=== PATIENT | female | born 1935 | race Caucasian/White ===

== ENCOUNTER → 2018-01-16 | Outpatient (CLI) | payer MEDICARE, OTHER ==
[~2018-01-16] MED LIST: ALBU2.5V2 IH; ALBU8.5H8 IH; ALPR0.5T8 PO; AMLO10TA6 PO; CLOP75TA32 PO; ERGO500014 PO; FLUO-126 PO; FURO20TA4 PO; GABA-529 PO; HYDR12.530 PO; ISOS60TA4 PO; LORA10TA7 PO; METO-408 PO; NAPR250T4 PO; PANT40TA25 PO; SIMV20TA6 PO
== END | disposition home or self-care (01) ==
LOC: SHCH 14:43
PROVIDERS: ATTEND Internal Medicine Cardiovascular Disease
DX: R01.1 Cardiac murmur, unspecified (principal); I51.7 Cardiomegaly
CPT/HCPCS: 93306

== ENCOUNTER 2019-07-28 13:26 | Inpatient (IN) | payer MEDICARE, OTHER ==
[~2019-07-28] VITALS: Ht 162.6 cm; Wt 71.0 kg
[~2019-07-28 13:26] MED LIST changes: -ALBU2.5V2 IH; +AMLO-258 PO; -AMLO10TA6 PO; -FLUO-126 PO; +FLUO20CA35 PO; -FURO20TA4 PO; +LEVO500T2 PO; -NAPR250T4 PO; -PANT40TA25 PO; +PANT40TA54 PO; +SIMV-43 PO; -SIMV20TA6 PO; +VIT1CAPS47 PO
[2019-07-28] MEDS ORDERED: APIXABAN 2.5 MG TABLET PO ONE (13:52)
[2019-07-28 13:53] LABS: BASOPHILS % (AUTO) 0.8 % (0.0-5.0); EOSINOPHILS % (AUTO) 2.9 % (0.0-8.0); HEMATOCRIT 40.3 % (36-48); LYMPHOCYTES % (AUTO) 26.8 % (21.0-51.0); MEAN CORPUSCULAR HEMOGLOBIN 28.2 pg (27.0-33.0); MONOCYTES % (AUTO) 7.6 % (3.0-13.0); NEUTROPHILS % (AUTO) 61.6 % (40.0-77.0); PLATELET COUNT (AUTO) 227 K/uL (130-400); RED BLOOD CELL COUNT(AUTO) 4.58 MIL/uL (4.00-5.50); RED CELL DISTRIBUTION WIDTH 13.8 % (11.0-15.5); WHITE BLOOD COUNT (AUTO) 6.6 K/uL (4.8-10.8)
[2019-07-28] MEDS ORDERED: METOPROLOL TARTRATE 1 MG/ML 5ML VIAL IV ONE ×3 (13:53→15:01)
[2019-07-28 14:07] LABS: CREATININE 0.9 mg/dL (0.5-1.5); POTASSIUM 4.1 mmol/L (3.5-5.1)
[2019-07-28] MEDS ORDERED: METOPROLOL TARTRATE 50 MG TAB ONE (15:01)
[2019-07-28] MEDS ORDERED: METOPROLOL TARTRATE 1 MG/ML 5ML VIAL IV PRN (15:15)
[2019-07-28] MEDS ORDERED: POTASSIUM CHLORIDE 10% ELIXIR 20 MEQ/15 ML UDCUP PO PRN (15:15)
[2019-07-28] MEDS ORDERED: LIDOCAINE HCL-MPF 1% 2ML VIAL IJ PRN (15:15)
[2019-07-28] MEDS ORDERED: LACTULOSE 20 GM/30 ML UDCUP PO PRN ×2 (15:15→15:30)
[2019-07-28] MEDS ORDERED: ACETAMINOPHEN 325 MG TAB PO PRN ×4 (15:15→15:30)
[2019-07-28] MEDS ORDERED: POTASSIUM CHLORIDE 20MEQ/100ML 100 ML IV PRN (15:15)
[2019-07-28 15:17] LABS: APPEARANCE,URINE Clear (CLEAR); BILIRUBIN,URINE Negative (NEGATIVE); COLOR,URINE Yellow (YELLOW); GLUCOSE, URINE (UA) Negative (NEGATIVE); KETONES,URINE Negative (NEGATIVE); LEUKOCYTE ESTERASE ,URINE Negative (NEGATIVE); NITRATE,URINE Negative (NEGATIVE); OCCULT BLOOD,URINE Negative (NEGATIVE); PROTEIN,URINE Negative (NEGATIVE); UROBILINOGEN,URINE 0.2 mg/dL (0.2-1.0)
[2019-07-28] MEDS: SODIUM CHLORIDE 0.9% 1000ML 1,000 ML IV SCH (15:18)
[2019-07-28] MEDS ORDERED: SODIUM CHLORIDE 0.9% 1000ML 1,000 ML IV ONE (15:28)
[2019-07-28] MEDS ORDERED: NITROGLYCERIN 0.4 MG SL TAB SL PRN (15:30)
[2019-07-28] MEDS ORDERED: ONDANSETRON HCL 4 MG/2 ML VIAL IV PRN (15:30)
[2019-07-28] MEDS ORDERED: GUAIFENESIN-DM 200/20 MG 10 ML PO PRN (15:30)
[2019-07-28] MEDS ORDERED: MAG HYDROX/AL HYDROX/SIMETH ES 30 ML SUSP UDCUP PO PRN (15:30)
[2019-07-28] MEDS ORDERED: DIPHENHYDRAMINE HCL 25 MG CAPSULE PO PRN (15:30)
[2019-07-28] MEDS ORDERED: DiphenhydrAMINE HCL 50 MG/ML VIAL IV PRN (15:30)
[2019-07-28] MEDS ORDERED: ESMOLOL HCL 2,500 MG in SODIUM CHLORIDE 0.9% 250 ML IV SCH (15:45)
[2019-07-28] MEDS ORDERED: HYDROXYZINE HCL 25 MG TABLET PO PRN (16:00)
[2019-07-28] MEDS ORDERED: DILTIAZEM HCL 125 MG/25 ML 125 MG in SODIUM CHLORIDE 0.9% 100 ML IV SCH (17:45)
[2019-07-28] MEDS ORDERED: DILTIAZEM HCL 125 MG/25 ML VIAL IV ONE (17:52)
[2019-07-28] MEDS ORDERED: SODIUM CHLORIDE 0.9% 100 ML IV ONE (17:52)
[2019-07-28] MEDS ORDERED: MIDAZOLAM HCL 1 MG/ML 2ML VIAL ONE (18:16)
[2019-07-28] MEDS: FAMOTIDINE 20MG TAB 20 MG TAB PO SCH (21:00)
[2019-07-28] MEDS: APIXABAN 2.5 MG TABLET PO SCH (21:00)
[2019-07-28 22:15] VITALS: BP 147/61
[2019-07-28] MEDS ORDERED: APIX2.5T PO (23:39)
[2019-07-29] MEDS: SODIUM CHLORIDE 0.9% 1000ML 1,000 ML IV SCH ×3 (00:21→21:18)
[2019-07-29 04:16] VITALS: BP 147/78
[2019-07-29 06:00] LABS: BASOPHILS % (AUTO) 0.9 % (0.0-5.0); EOSINOPHILS % (AUTO) 2.2 % (0.0-8.0); HEMATOCRIT 38.3 % (36-48); LYMPHOCYTES % (AUTO) 32.8 % (21.0-51.0); MEAN CORPUSCULAR HEMOGLOBIN 27.5 pg (27.0-33.0); MEAN CORPUSCULAR HGB CONC 31.3 g/dL (32.0-36.0); MEAN CORPUSCULAR VOLUME 87.6 fL (79-99); MONOCYTES % (AUTO) 10.5 % (3.0-13.0); NEUTROPHILS % (AUTO) 53.3 % (40.0-77.0); PLATELET COUNT (AUTO) 230 K/uL (130-400); RED BLOOD CELL COUNT(AUTO) 4.37 MIL/uL (4.00-5.50); WHITE BLOOD COUNT (AUTO) 5.8 K/uL (4.8-10.8)
[2019-07-29 06:08] LABS: ALBUMIN 3.2 g/dL (3.5-5.0); BILIRUBIN,TOTAL 0.3 mg/dL (0.2-1.0); CREATININE 0.8 mg/dL (0.5-1.5); POTASSIUM 3.6 mmol/L (3.5-5.1); TOTAL PROTEIN, SERUM 6.3 g/dL (6.0-8.3)
[2019-07-29 08:00] VITALS: BP 152/73
[2019-07-29] MEDS ORDERED: METOPROLOL SUCCINATE 50 MG TAB.SR.24H PO SCH (09:00)
[2019-07-29] MEDS ORDERED: NON-FORMULARY MEDICATION 1 EACH (Amlodipine Besylate 1 TAB) PO SCH (09:00)
[2019-07-29] MEDS ORDERED: NON-FORMULARY MEDICATION 1 EACH (Metoprolol Succinate 25 MG) PO SCH (09:00)
[2019-07-29] MEDS: ISOSORBIDE MONO 60 MG TAB.SR PO SCH (09:01)
[2019-07-29] MEDS: FAMOTIDINE 20MG TAB 20 MG TAB PO SCH ×2 (09:01→21:42)
[2019-07-29] MEDS: APIXABAN 2.5 MG TABLET PO SCH ×2 (09:02→21:42)
[2019-07-29] MEDS: AMLODIPINE BESYLATE 5 MG TAB PO SCH (09:02)
[2019-07-29] MEDS: ALPRAZOLAM 0.5 MG TABLET PO SCH ×2 (09:02→21:42)
[2019-07-29] MEDS: METOPROLOL SUCCINATE 50 MG TAB.SR.24H PO SCH (09:44)
[2019-07-29 12:06] VITALS: BP 98/55
[2019-07-29] MEDS ORDERED: FUROSEMIDE 10 MG/ML 2ML VIAL IV SCH (14:15)
[2019-07-29 16:00] VITALS: BP 105/64
--- NOTE | 2019-07-29 16:50 | NUR ---
DCP CM met with pt discussed dc plans. Pt is semi-independent prior to admission, lives at home with daughter. Pt has a walker, wheelchair. Denies any other equipment/services. Feels safe to go back home, daughter able to assist with transportation and needs as necessary. DC plan to home once stable. CM to cont to follow up. Addendum: 07/29/19 at 1656 by DIONISIO THOMPSON LVN CM Amended: Links added.
--- NOTE | 2019-07-29 19:00 | NUR ---
Received report patient off Cardize and IVF.No official order.
[2019-07-29 19:40] VITALS: BP 113/56
[2019-07-29] MEDS: SIMVASTATIN 20 MG TABLET PO SCH (21:42)
[2019-07-29] MEDS: FLUOXETINE HCL 20 MG CAPSULE PO SCH (21:42)
--- NOTE | 2019-07-29 22:52 | NUR ---
Pt placed back on cardizem drip and NS back due to HR went up to Afu=ib RVR 130's.Patient denies,shortness of breath,palpitation and chest pain,daughter to bedside.
[2019-07-29 23:27] VITALS: BP 132/74
[2019-07-30] MEDS ORDERED: DILTIAZEM HCL 125 MG/25 ML VIAL IV ONE (03:00)
[2019-07-30] MEDS ORDERED: SODIUM CHLORIDE 0.9% 100 ML IV ONE ×2 (03:02→03:26)
[2019-07-30] MEDS ORDERED: SODIUM CHLORIDE 0.9% 1000ML 0 ML IV ONE (03:21)
[2019-07-30] MEDS: SODIUM CHLORIDE 0.9% 1000ML 1,000 ML IV SCH (03:35)
[2019-07-30 03:49] VITALS: BP 149/95
[2019-07-30 05:32] LABS: EOSINOPHILS % (AUTO) 1.7 % (0.0-8.0); HEMATOCRIT 37.3 % (36-48); LYMPHOCYTES % (AUTO) 25.5 % (21.0-51.0); MEAN CORPUSCULAR HEMOGLOBIN 28.2 pg (27.0-33.0); MEAN CORPUSCULAR HGB CONC 32.2 g/dL (32.0-36.0); MEAN CORPUSCULAR VOLUME 87.6 fL (79-99); MONOCYTES % (AUTO) 11.1 % (3.0-13.0); NEUTROPHILS % (AUTO) 60.1 % (40.0-77.0); PLATELET COUNT (AUTO) 236 K/uL (130-400); RED BLOOD CELL COUNT(AUTO) 4.26 MIL/uL (4.00-5.50); RED CELL DISTRIBUTION WIDTH 13.7 % (11.0-15.5); WHITE BLOOD COUNT (AUTO) 7.2 K/uL (4.8-10.8)
[2019-07-30 06:04] LABS: B-TYPE NATRIURETIC PEPTIDE 167 pg/mL (0-100)
[2019-07-30 06:21] LABS: BILIRUBIN,TOTAL 0.3 mg/dL (0.2-1.0); MAGNESIUM 2.3 mg/dL (1.80-2.40); PHOSPHORUS 3.5 mg/dL (2.5-4.9); POTASSIUM 3.6 mmol/L (3.5-5.1); THYROID STIMULATING HORMONE 1.9 uIU/mL (0.36-3.74); TOTAL PROTEIN, SERUM 6.1 g/dL (6.0-8.3)
[2019-07-30] MEDS: POTASSIUM CHLORIDE 20 MEQ ERTAB PO PRN ×2 (06:35→20:39)
[2019-07-30 08:00] VITALS: BP 132/75
[2019-07-30] MEDS: ALPRAZOLAM 0.5 MG TABLET PO SCH ×2 (09:18→20:39)
[2019-07-30] MEDS: METOPROLOL SUCCINATE 50 MG TAB.SR.24H PO SCH ×6 (09:18→20:40)
[2019-07-30] MEDS: APIXABAN 2.5 MG TABLET PO SCH ×2 (09:18→20:39)
[2019-07-30] MEDS: FAMOTIDINE 20MG TAB 20 MG TAB PO SCH ×2 (09:18→20:40)
[2019-07-30] MEDS: AMLODIPINE BESYLATE 5 MG TAB PO SCH (09:19)
[2019-07-30] MEDS: ISOSORBIDE MONO 60 MG TAB.SR PO SCH (09:19)
[2019-07-30 11:53] VITALS: BP 86/60
--- NOTE | 2019-07-30 12:00 | NUR ---
CARDIZEM DRIP TO BE WEANED OFF. AT 5 MG /HR .DOWN TO 2.5 MG /HR HR PER TELE MONITORING. A- FIB AT 112- 130'S . WILL BE MONITORING WEANING DOWN DRIP . EDUCATIONS DONE. AND CALL LIGHT IN REACH
--- NOTE | 2019-07-30 14:00 | NUR ---
CARDIZEM DRIP OFF , . WILL BE MONITORING . HEART RATE A- FIB AT Rate of 90
[2019-07-30 16:00] VITALS: BP 125/71
[2019-07-30] MEDS: METOPROLOL TARTRATE 1 MG/ML 5ML VIAL IV PRN ×2 (16:58→18:45)
[2019-07-30] MEDS: FUROSEMIDE 40 MG TABLET PO SCH (17:03)
[2019-07-30] MEDS ORDERED: METOPROLOL SUCCINATE 50 MG TAB.SR.24H PO SCH (17:15)
--- NOTE | 2019-07-30 18:45 | NUR ---
GAVE 2 DOSE . OF LOPRESSOR 5MG IV AT 1658, FOR A HR OF 130. A- FIB, B/P OF 127/78 AND OTHER DOSE AT 1845 HEART RATE OF 128 A FIB, AND A B/P OF 120/78 AND A PO DOSE OF TOPROL 50 MG PO . FOR HEART RATE ,STATUS, PO GIVEN AT 1735 ,
[2019-07-30 19:29] VITALS: BP 103/71
[2019-07-30] MEDS: SIMVASTATIN 20 MG TABLET PO SCH (20:39)
[2019-07-30] MEDS: FLUOXETINE HCL 20 MG CAPSULE PO SCH (20:40)
--- NOTE | 2019-07-30 22:35 | NUR ---
Patient converted to sinus rhythm.
[2019-07-30 23:34] VITALS: BP 136/79
[2019-07-31 03:53] VITALS: BP 143/71
[2019-07-31 04:29] LABS: BASOPHILS % (AUTO) 0.7 % (0.0-5.0); EOSINOPHILS % (AUTO) 1.6 % (0.0-8.0); HEMATOCRIT 36.4 % (36-48); LYMPHOCYTES % (AUTO) 27.9 % (21.0-51.0); MEAN CORPUSCULAR HEMOGLOBIN 27.8 pg (27.0-33.0); MEAN CORPUSCULAR HGB CONC 31.9 g/dL (32.0-36.0); MEAN CORPUSCULAR VOLUME 87.1 fL (79-99); MONOCYTES % (AUTO) 10.7 % (3.0-13.0); NEUTROPHILS % (AUTO) 58.7 % (40.0-77.0); PLATELET COUNT (AUTO) 217 K/uL (130-400); RED BLOOD CELL COUNT(AUTO) 4.18 MIL/uL (4.00-5.50); RED CELL DISTRIBUTION WIDTH 13.9 % (11.0-15.5); WHITE BLOOD COUNT (AUTO) 7.5 K/uL (4.8-10.8)
[2019-07-31 04:59] LABS: ALBUMIN 3.1 g/dL (3.5-5.0); BILIRUBIN,TOTAL 0.3 mg/dL (0.2-1.0); CREATININE 1.1 mg/dL (0.5-1.5); POTASSIUM 3.8 mmol/L (3.5-5.1); TOTAL PROTEIN, SERUM 6.2 g/dL (6.0-8.3)
[2019-07-31 07:00] VITALS: BP 141/75
--- NOTE | 2019-07-31 07:40 | NUR ---
ASSESSMENT ENCOUNTERED PT A&OX3, CALM COOPERATIVE AND DOES NOT APPEAR TO BE IN ANY DISTRESS NOR ANY NEURO DEFICITS PRESENT. PT DENIES PAIN, SOB, NAUSEA. TELE MONITOR DISPLAYS NSR, PT IS ABLE TO TOLERATE FOODS, FLUIDS AND MEDICATION WITH NO THROAT CLEARING OR COUGH. CALL LIGHT WITHIN REACH, FAMILY AT BEDSIDE.
[2019-07-31] MEDS: ISOSORBIDE MONO 60 MG TAB.SR PO SCH (07:49)
[2019-07-31] MEDS: FUROSEMIDE 40 MG TABLET PO SCH (07:49)
[2019-07-31] MEDS: APIXABAN 2.5 MG TABLET PO SCH (07:50)
[2019-07-31] MEDS: FAMOTIDINE 20MG TAB 20 MG TAB PO SCH (07:50)
[2019-07-31] MEDS: METOPROLOL SUCCINATE 50 MG TAB.SR.24H PO SCH (07:50)
[2019-07-31] MEDS: ALPRAZOLAM 0.5 MG TABLET PO SCH (07:53)
[2019-07-31] MEDS ORDERED: AMLODIPINE BESYLATE 5 MG TAB PO SCH (09:00)
--- NOTE | 2019-07-31 13:00 | NUR ---
DISCHARGE INSTRUCTIONS GIVEN, PIV REMOVED AND INTACT, DISCHARGED HOME TO FAMILY VEHICLE VIA WHEELCHAIR.
== END 2019-07-31 14:30 | disposition home or self-care (01) | DRG 308 ==
LOC: EDH 13:26 → EDHIP 13:27 → 4CH 21:58
PROVIDERS: ADMIT Internal Medicine; ATTEND Internal Medicine
DX: I48.0 Paroxysmal atrial fibrillation (principal); I50.33 Acute on chronic diastolic (congestive) heart failure; D68.59 Other primary thrombophilia; I25.10 Atherosclerotic heart disease of native coronary artery without angina pectoris; F41.8 Other specified anxiety disorders; I11.0 Hypertensive heart disease with heart failure; I48.92 Unspecified atrial flutter; I48.20 Chronic atrial fibrillation, unspecified; Z79.01 Long term (current) use of anticoagulants; Z95.5 Presence of coronary angioplasty implant and graft; Z80.0 Family history of malignant neoplasm of digestive organs; Z82.49 Family history of ischemic heart disease and other diseases of the circulatory system; Z82.3 Family history of stroke; Z82.5 Family history of asthma and other chronic lower respiratory diseases; Z82.0 Family history of epilepsy and other diseases of the nervous system; Z83.3 Family history of diabetes mellitus
CPT/HCPCS: 36415; 71045; 80048; 80053; 80061; 81003; 83735; 83880; 84100; 84145; 84443; 84484; 85025; 93005; 93306; 93356; 97039; G0378; J1940; J2250; J3490; J7030; J7050

== ENCOUNTER 2020-10-06 19:08 | Emergency (ER) | payer MEDICARE, OTHER ==
[~2020-10-06] VITALS: Ht 165.1 cm; Wt 54.4 kg
[~2020-10-06 19:08] MED LIST changes: +APIX2.5T PO; -ISOS60TA4 PO; +ISOS60TA77 PO; -LEVO500T2 PO; -METO-408 PO
[2020-10-06 19:09] VITALS: BP 173/84
[2020-10-06 19:30] LABS: BASOPHILS % (AUTO) 0.5 % (0.0-5.0); EOSINOPHILS % (AUTO) 0.6 % (0.0-8.0); HEMATOCRIT 37.8 % (36-48); LYMPHOCYTES % (AUTO) 25.4 % (21.0-51.0); MEAN CORPUSCULAR HEMOGLOBIN 27.7 pg (27.0-33.0); MEAN CORPUSCULAR HGB CONC 31.7 g/dL (32.0-36.0); MEAN CORPUSCULAR VOLUME 87.3 fL (79-99); MONOCYTES % (AUTO) 9.1 % (3.0-13.0); NEUTROPHILS % (AUTO) 64.2 % (40.0-77.0); PLATELET COUNT (AUTO) 231 K/uL (130-400); RED BLOOD CELL COUNT(AUTO) 4.33 MIL/uL (4.00-5.50); RED CELL DISTRIBUTION WIDTH 13.6 % (11.0-15.5); WHITE BLOOD COUNT (AUTO) 8.4 K/uL (4.8-10.8)
[2020-10-06 19:45] LABS: INR 1.05 (0.85-1.15); PROTHROMBIN TIME 11.4 SEC (9.6-11.6)
[2020-10-06 19:59] VITALS: BP 199/85
[2020-10-06 20:15] LABS: APPEARANCE,URINE Cloudy (CLEAR); BILIRUBIN,URINE Negative (NEGATIVE); COLOR,URINE STRAW (YELLOW); GLUCOSE, URINE (UA) Negative (NEGATIVE); KETONES,URINE Negative (NEGATIVE); LEUKOCYTE ESTERASE ,URINE Negative (NEGATIVE); NITRATE,URINE Negative (NEGATIVE); OCCULT BLOOD,URINE Negative (NEGATIVE); PH,URINE 7.5 (5.0-8.0); PROTEIN,URINE Negative (NEGATIVE); UROBILINOGEN,URINE 0.2 mg/dL (0.2-1.0)
[2020-10-06 20:21] LABS: CREATININE 0.7 mg/dL (0.5-1.5); POTASSIUM 4.8 mmol/L (3.5-5.1)
[2020-10-06 20:25] LABS: B-TYPE NATRIURETIC PEPTIDE 216 pg/mL (0-100)
[2020-10-06 20:25] LABS: ALBUMIN 3.8 g/dL (3.5-5.0); BILIRUBIN,TOTAL 0.3 mg/dL (0.2-1.0); TOTAL PROTEIN, SERUM 7.4 g/dL (6.0-8.3)
[2020-10-06 20:27] LABS: RBC,URINE None Seen /HPF (0-1)
[2020-10-06 20:28] LABS: BACTERIA,URINE Rare /HPF (None Seen); WBC,URINE 0-1 /HPF (0-1)
[2020-10-06 21:00] VITALS: BP 178/83
[2020-10-07 02:13] VITALS: BP 135/62
== END 2020-10-07 02:29 | disposition home or self-care (01) ==
LOC: EDH 19:08
DX: S01.81XA Laceration without foreign body of other part of head, initial encounter (principal); S80.12XA Contusion of left lower leg, initial encounter; S80.11XA Contusion of right lower leg, initial encounter; I10 Essential (primary) hypertension; I25.10 Atherosclerotic heart disease of native coronary artery without angina pectoris; Z88.6 Allergy status to analgesic agent; Z88.5 Allergy status to narcotic agent; Z79.899 Other long term (current) drug therapy; Z79.01 Long term (current) use of anticoagulants; Z95.818 Presence of other cardiac implants and grafts; W18.09XA Striking against other object with subsequent fall, initial encounter; Y93.89 Activity, other specified; Y92.89 Other specified places as the place of occurrence of the external cause; Y99.8 Other external cause status
CPT/HCPCS: 12011; 36415; 70450; 71045; 72125; 80053; 81001; 82550; 83880; 84484; 85025; 85610; 93005

== ENCOUNTER 2020-12-08 18:01 | Inpatient (IN) | payer MEDICARE, OTHER ==
[~2020-12-08] VITALS: Ht 160 cm; Wt 70.0 kg
[~2020-12-08 18:01] MED LIST changes: -FLUO20CA35 PO; +FLUO20CA36 PO
[2020-12-08 18:58] LABS: BASOPHILS % (AUTO) 0.2 % (0.0-5.0); EOSINOPHILS % (AUTO) 0.1 % (0.0-8.0); HEMATOCRIT 31.2 % (36-48); LYMPHOCYTES % (AUTO) 5.1 % (21.0-51.0); MEAN CORPUSCULAR HEMOGLOBIN 27.6 pg (27.0-33.0); MEAN CORPUSCULAR HGB CONC 32.7 g/dL (32.0-36.0); MEAN CORPUSCULAR VOLUME 84.6 fL (79-99); MONOCYTES % (AUTO) 8.6 % (3.0-13.0); NEUTROPHILS % (AUTO) 85.3 % (40.0-77.0); PLATELET COUNT (AUTO) 194 K/uL (130-400); RED BLOOD CELL COUNT(AUTO) 3.69 MIL/uL (4.00-5.50); RED CELL DISTRIBUTION WIDTH 14.1 % (11.0-15.5); WHITE BLOOD COUNT (AUTO) 12.8 K/uL (4.8-10.8)
[2020-12-08 19:25] LABS: INR 1.16 (0.85-1.15); PROTHROMBIN TIME 12.5 SEC (9.6-11.6)
[2020-12-08] MEDS ORDERED: 0.9% NACL 500ML IV.SOLN 500 ML IV ONE (19:30)
[2020-12-08 19:31] LABS: CREATININE 0.7 mg/dL (0.5-1.5); POTASSIUM 3.1 mmol/L (3.5-5.1)
[2020-12-08 19:36] LABS: ALBUMIN 2.8 g/dL (3.5-5.0); BILIRUBIN,TOTAL 0.6 mg/dL (0.2-1.0); TOTAL PROTEIN, SERUM 6.6 g/dL (6.0-8.3)
[2020-12-08 20:38] LABS: APPEARANCE,URINE Clear (CLEAR); BILIRUBIN,URINE Negative (NEGATIVE); COLOR,URINE Yellow (YELLOW); GLUCOSE, URINE (UA) Negative (NEGATIVE); KETONES,URINE 15 mg/dL (NEGATIVE); LEUKOCYTE ESTERASE ,URINE Trace (NEGATIVE); NITRATE,URINE Negative (NEGATIVE); OCCULT BLOOD,URINE Negative (NEGATIVE); PROTEIN,URINE POS 1+ mg/dL (NEGATIVE)
[2020-12-08 21:07] LABS: BACTERIA,URINE Few /HPF (None Seen); MUCUS,URINE Few LPF (None Seen); SQUAMOUS EPITHELIAL CELL,UR Few /HPF (0-2)
[2020-12-08] MEDS ORDERED: AZITHROMYCIN 500MG VIAL IVPB SCH (23:30)
[2020-12-08] MEDS ORDERED: 0.9% NACL 250ML IVPB SCH (23:30)
[2020-12-09] VITALS (10 sets, daily range): BP systolic 141–161; BP diastolic 71–100
[2020-12-09] MEDS ORDERED: POTASSIUM CHLORIDE 20MEQ/100ML 100 ML IV PRN
[2020-12-09] MEDS ORDERED: LIDOCAINE HCL-MPF 1% 2ML VIAL IV PRN
[2020-12-09] MEDS ORDERED: CEFTRIAXONE 1G VIAL IVP SCH (01:00)
[2020-12-09] MEDS: DOXYCYCLINE 100MG+NS 250ML 250 ML IV SCH ×2 (01:44→15:24)
[2020-12-09] MEDS: POTASSIUM CHLORIDE 10% ELIXIR 20 MEQ/15 ML UDCUP PO PRN ×3 (01:45→20:57)
[2020-12-09] MEDS: ONDANSETRON 4MG INJ IV PRN (04:08)
[2020-12-09] MEDS ORDERED: PANT40TA54 PO (04:17)
[2020-12-09] MEDS ORDERED: METO50TA18 PO (04:17)
[2020-12-09] MEDS ORDERED: ISOS60TA77 PO (04:17)
[2020-12-09] MEDS ORDERED: AMLO-257 PO (04:17)
[2020-12-09] MEDS ORDERED: GABA-529 PO (04:17)
[2020-12-09] MEDS ORDERED: FLUO10CA24 PO (04:17)
[2020-12-09] MEDS ORDERED: APIX2.5T PO (04:17)
[2020-12-09] MEDS ORDERED: ALPR0.5T8 PO (04:17)
[2020-12-09] MEDS ORDERED: SIMV-43 PO (04:17)
[2020-12-09 05:49] LABS: BASOPHILS % (AUTO) 0.3 % (0.0-5.0); EOSINOPHILS % (AUTO) 0.4 % (0.0-8.0); HEMATOCRIT 34.2 % (36-48); LYMPHOCYTES % (AUTO) 4.4 % (21.0-51.0); MEAN CORPUSCULAR HGB CONC 31.3 g/dL (32.0-36.0); MEAN CORPUSCULAR VOLUME 86.1 fL (79-99); MONOCYTES % (AUTO) 8.5 % (3.0-13.0); NEUTROPHILS % (AUTO) 85.8 % (40.0-77.0); PLATELET COUNT (AUTO) 217 K/uL (130-400); RED BLOOD CELL COUNT(AUTO) 3.97 MIL/uL (4.00-5.50); RED CELL DISTRIBUTION WIDTH 14.4 % (11.0-15.5); WHITE BLOOD COUNT (AUTO) 14.8 K/uL (4.8-10.8)
[2020-12-09 06:00] LABS: CREATININE 0.6 mg/dL (0.5-1.5); MAGNESIUM 1.6 mg/dL (1.80-2.40); PHOSPHORUS 2.4 mg/dL (2.5-4.9); POTASSIUM 3.7 mmol/L (3.5-5.1)
[2020-12-09] MEDS: APIXABAN 2.5 MG TABLET PO SCH ×2 (08:04→20:55)
[2020-12-09] MEDS: MAGNESIUM 2GM PREMIX 50ML 50 ML IV PRN (08:21)
[2020-12-09] MEDS ORDERED: ENOXAPARIN SODIUM 40 MG/0.4 ML SYRINGE SQ SCH (09:00)
[2020-12-09] MEDS ORDERED: FAMOTIDINE 20MG TAB PO SCH (09:00)
[2020-12-09] MEDS: KCL 20 MEQ ERTAB PO PRN (10:06)
[2020-12-09] MEDS ORDERED: AMLODIPINE 5 MG TAB PO SCH (10:25)
[2020-12-09] MEDS ORDERED: GABAPENTIN 100 MG CAPSULE PO SCH (10:26)
[2020-12-09] MEDS ORDERED: METOPROLOL TARTRATE 50 MG TAB PO SCH (10:27)
[2020-12-09] MEDS ORDERED: ISOSORBIDE MONO 60MG SR TAB PO SCH (10:30)
[2020-12-09] MEDS: PANTOPRAZOLE 40 MG TAB DR PO SCH (11:27)
[2020-12-09] MEDS: FLUOXETINE HCL 10 MG CAPSULE PO SCH (11:28)
[2020-12-09] MEDS ORDERED: ALPRAZOLAM 0.5 MG TABLET PO SCH (14:00)
[2020-12-09] MEDS ORDERED: ZOSYN 3.375GM +NS 50ML IV SCH (14:00)
[2020-12-09] MEDS ORDERED: METOPROLOL TARTRATE 1 MG/ML 5ML VIAL IV ONE ×3 (19:43→22:00)
[2020-12-09 20:26] LABS: POTASSIUM 3.5 mmol/L (3.5-5.1)
[2020-12-09] MEDS: SIMVASTATIN 20 MG TABLET PO SCH (20:55)
[2020-12-09] MEDS: ALPRAZOLAM 0.25 MG TABLET PO SCH (20:55)
[2020-12-09] MEDS: METOPROLOL TARTRATE 25 MG TAB PO SCH (21:01)
[2020-12-09] MEDS ORDERED: KCL 20 MEQ ERTAB PO ONE (22:00)
[2020-12-09] MEDS ORDERED: DILTIAZEM 50MG VIAL IV ONE (22:21)
[2020-12-09] MEDS ORDERED: 0.9%NACL 100ML 100 ML ONE (23:30)
[2020-12-10] VITALS (22 sets, daily range): BP systolic 106–168; BP diastolic 56–104
[2020-12-10] MEDS ORDERED: DILTIAZEM 125 MG/25 ML INJ IV ONE (00:13)
[2020-12-10] MEDS ORDERED: 0.9%NACL 100ML 100 ML ONE (00:13)
[2020-12-10] MEDS: ZOSYN 3.375GM +NS 50ML IV SCH ×3 (00:29→16:22)
[2020-12-10] MEDS ORDERED: IPRATROPIUM/ALBUTEROL SULFATE 3 ML SOLUTION IH PRN (01:00)
[2020-12-10] MEDS ORDERED: HYDROXYZINE 25 MG TABLET PO ONE (01:00)
[2020-12-10] MEDS ORDERED: DILTIAZEM 25MG INJ IVP SCH (02:00)
[2020-12-10] MEDS ORDERED: DOXYCYCLINE 100MG+NS 250ML 250 ML IV SCH ×2 (03:30→05:00)
[2020-12-10 05:24] LABS: BASOPHILS % (AUTO) 0.3 % (0.0-5.0); EOSINOPHILS % (AUTO) 1.3 % (0.0-8.0); HEMATOCRIT 30.7 % (36-48); LYMPHOCYTES % (AUTO) 9.1 % (21.0-51.0); MEAN CORPUSCULAR HEMOGLOBIN 26.9 pg (27.0-33.0); MEAN CORPUSCULAR HGB CONC 30.9 g/dL (32.0-36.0); MONOCYTES % (AUTO) 9.9 % (3.0-13.0); NEUTROPHILS % (AUTO) 78.3 % (40.0-77.0); PLATELET COUNT (AUTO) 209 K/uL (130-400); RED BLOOD CELL COUNT(AUTO) 3.53 MIL/uL (4.00-5.50); RED CELL DISTRIBUTION WIDTH 14.6 % (11.0-15.5); WHITE BLOOD COUNT (AUTO) 13.2 K/uL (4.8-10.8)
[2020-12-10 05:53] LABS: B-TYPE NATRIURETIC PEPTIDE 661 pg/mL (0-100)
[2020-12-10 05:56] LABS: CREATININE 0.6 mg/dL (0.5-1.5); MAGNESIUM 1.9 mg/dL (1.80-2.40); POTASSIUM 4.4 mmol/L (3.5-5.1)
[2020-12-10] MEDS: METOPROLOL TARTRATE 50 MG TAB PO SCH (08:11)
[2020-12-10] MEDS: ALPRAZOLAM 0.25 MG TABLET PO SCH ×2 (08:11→21:06)
[2020-12-10] MEDS ORDERED: IPRATROPIUM 0.5 MG/2.5 ML INH IH PRN (09:00)
[2020-12-10] MEDS ORDERED: ISOSORBIDE MONO 60MG SR TAB PO SCH (09:00)
[2020-12-10] MEDS: FLUOXETINE HCL 10 MG CAPSULE PO SCH (09:08)
[2020-12-10] MEDS: APIXABAN 2.5 MG TABLET PO SCH ×2 (09:08→21:07)
[2020-12-10] MEDS: PANTOPRAZOLE 40 MG TAB DR PO SCH (09:08)
[2020-12-10 13:03] LABS: CREATININE 0.6 mg/dL (0.5-1.5); MAGNESIUM 1.8 mg/dL (1.80-2.40); POTASSIUM 3.6 mmol/L (3.5-5.1)
[2020-12-10] MEDS: METOPROLOL TARTRATE 25 MG TAB PO SCH (21:06)
[2020-12-10] MEDS: SIMVASTATIN 20 MG TABLET PO SCH (21:07)
[2020-12-11] VITALS: BP 126/54
[2020-12-11] MEDS: ZOSYN 3.375GM +NS 50ML IV SCH ×3 (00:19→16:33)
[2020-12-11 04:00] VITALS: BP 126/60
[2020-12-11 05:15] LABS: CREATININE 0.6 mg/dL (0.5-1.5); POTASSIUM 3.5 mmol/L (3.5-5.1)
[2020-12-11] MEDS: POTASSIUM CHLORIDE 10% ELIXIR 20 MEQ/15 ML UDCUP PO PRN ×2 (05:19→09:02)
[2020-12-11 05:20] LABS: % IRON SATURATION 9.4 % (22-44)
[2020-12-11 05:21] LABS: HEMATOCRIT 28.5 % (36-48); MEAN CORPUSCULAR HEMOGLOBIN 27.4 pg (27.0-33.0); MEAN CORPUSCULAR HGB CONC 32.6 g/dL (32.0-36.0); MEAN CORPUSCULAR VOLUME 84.1 fL (79-99); RED BLOOD CELL COUNT(AUTO) 3.39 MIL/uL (4.00-5.50); RED CELL DISTRIBUTION WIDTH 14.6 % (11.0-15.5); WHITE BLOOD COUNT (AUTO) 11.7 K/uL (4.8-10.8)
[2020-12-11 07:28] VITALS: BP 140/76
[2020-12-11] MEDS: METOPROLOL TARTRATE 50 MG TAB PO SCH (09:00)
[2020-12-11] MEDS: ALPRAZOLAM 0.25 MG TABLET PO SCH ×2 (09:00→22:00)
[2020-12-11] MEDS: FLUOXETINE HCL 10 MG CAPSULE PO SCH (09:00)
[2020-12-11] MEDS: PANTOPRAZOLE 40 MG TAB DR PO SCH (09:01)
[2020-12-11] MEDS: APIXABAN 2.5 MG TABLET PO SCH ×2 (09:01→22:00)
[2020-12-11] MEDS ORDERED: BENZOCAINE/MENTH/CETYLPYRD CL 1 EACH LOZENGE MM PRN (10:00)
[2020-12-11 11:25] VITALS: BP 128/59
[2020-12-11] MEDS: DILTIAZEM 125 MG/25 ML INJ 125 MG in 0.9%NACL 100ML 100 ML IV SCH (12:40)
[2020-12-11] MEDS ORDERED: AMIODARONE 900MG VIAL 900 MG in DEXTROSE 5%-WATER 500 ML IV SCH (14:30)
[2020-12-11] MEDS ORDERED: AMIODARONE 150 MG in DEXTROSE 5%-WATER 100 ML IV SCH (14:45)
[2020-12-11] MEDS ORDERED: AMIODARONE 900MG VIAL 360 MG in DEXTROSE 5%-WATER 200 ML IV SCH (15:00)
[2020-12-11 15:55] VITALS: BP 126/64
[2020-12-11 20:00] VITALS: BP 141/69
[2020-12-11] MEDS ORDERED: AMIODARONE 900MG VIAL 450 MG in DEXTROSE 5%-WATER 250 ML IV SCH (21:00)
[2020-12-11] MEDS: SIMVASTATIN 20 MG TABLET PO SCH (22:00)
[2020-12-11] MEDS: METOPROLOL TARTRATE 25 MG TAB PO SCH (22:00)
[2020-12-12] VITALS (7 sets, daily range): BP systolic 129–153; BP diastolic 64–88
[2020-12-12] MEDS: ZOSYN 3.375GM +NS 50ML IV SCH ×3 (01:00→16:33)
[2020-12-12 04:22] LABS: BASOPHILS % (AUTO) 0.3 % (0.0-5.0); EOSINOPHILS % (AUTO) 1.3 % (0.0-8.0); HEMATOCRIT 30.7 % (36-48); LYMPHOCYTES % (AUTO) 7.9 % (21.0-51.0); MEAN CORPUSCULAR HEMOGLOBIN 27.2 pg (27.0-33.0); MEAN CORPUSCULAR HGB CONC 32.9 g/dL (32.0-36.0); MEAN CORPUSCULAR VOLUME 82.5 fL (79-99); MONOCYTES % (AUTO) 7.6 % (3.0-13.0); NEUTROPHILS % (AUTO) 82.1 % (40.0-77.0); PLATELET COUNT (AUTO) 260 K/uL (130-400); RED BLOOD CELL COUNT(AUTO) 3.72 MIL/uL (4.00-5.50); RED CELL DISTRIBUTION WIDTH 14.5 % (11.0-15.5); WHITE BLOOD COUNT (AUTO) 11.8 K/uL (4.8-10.8)
[2020-12-12 04:51] LABS: CREATININE 0.6 mg/dL (0.5-1.5); MAGNESIUM 1.8 mg/dL (1.80-2.40); POTASSIUM 3.5 mmol/L (3.5-5.1)
[2020-12-12] MEDS: MAGNESIUM 2GM PREMIX 50ML 50 ML IV PRN (05:32)
[2020-12-12] MEDS: PANTOPRAZOLE 40 MG TAB DR PO SCH (08:49)
[2020-12-12] MEDS: METOPROLOL TARTRATE 50 MG TAB PO SCH (08:49)
[2020-12-12] MEDS: FLUOXETINE HCL 10 MG CAPSULE PO SCH (08:49)
[2020-12-12] MEDS: APIXABAN 2.5 MG TABLET PO SCH ×2 (08:49→20:52)
[2020-12-12] MEDS: ALPRAZOLAM 0.25 MG TABLET PO SCH ×2 (09:00→20:51)
[2020-12-12] MEDS: DILTIAZEM 125 MG/25 ML INJ 125 MG in 0.9%NACL 100ML 100 ML IV SCH (11:52)
[2020-12-12] MEDS ORDERED: FENTANYL CITRATE PF 50 MCG/1 ML 2ML VIAL IVP ONE (14:20)
[2020-12-12] MEDS ORDERED: MIDAZOLAM HCL 1 MG/ML 2ML VIAL IVP ONE (14:25)
[2020-12-12] MEDS ORDERED: SODIUM CHLORIDE 3% FOR INHALATION 4 ML/AMP VIAL.NEB IH ONE (16:06)
[2020-12-12 16:14] LABS: ABG BASE EXCESS 0.5 mmol/L (-2.0-3.0); ABG HCO3 23.5 mmol/L (21.0-28.0); ABG OXYGEN SATURATION 98.2 % (95.0-99.0); ABG PCO2 34 mmHg (32-45)
[2020-12-12] MEDS ORDERED: COMPOUND IV MISC 1 EACH IVSOLN MISC PRN (16:30)
[2020-12-12] MEDS: [UNRECOGNIZED DRUG - OTHER] IV SCH (16:33)
[2020-12-12] MEDS: AMIODARONE 200 MG TABLET PO SCH (16:33)
[2020-12-12] MEDS: IRON SUCROSE COMPLEX IV SCH (16:33)
[2020-12-12] MEDS: FUROSEMIDE 20MG VIAL IV SCH (16:33)
[2020-12-12] MEDS ORDERED: KCL 20 MEQ ERTAB PO ONE (17:00)
[2020-12-12] MEDS: METOPROLOL TARTRATE 25 MG TAB PO SCH (20:51)
[2020-12-12] MEDS: SIMVASTATIN 20 MG TABLET PO SCH (20:52)
[2020-12-13] MEDS: ZOSYN 3.375GM +NS 50ML IV SCH ×3 (01:01→21:30)
[2020-12-13 03:47] VITALS: BP 142/79
[2020-12-13] MEDS: FUROSEMIDE 20MG VIAL IV SCH (04:01)
[2020-12-13 04:24] LABS: HEMATOCRIT 30.7 % (36-48); MEAN CORPUSCULAR HEMOGLOBIN 27.2 pg (27.0-33.0); MEAN CORPUSCULAR HGB CONC 32.6 g/dL (32.0-36.0); MEAN CORPUSCULAR VOLUME 83.7 fL (79-99); RED BLOOD CELL COUNT(AUTO) 3.67 MIL/uL (4.00-5.50); RED CELL DISTRIBUTION WIDTH 14.6 % (11.0-15.5)
[2020-12-13 04:49] LABS: CREATININE 0.6 mg/dL (0.5-1.5); MAGNESIUM 1.9 mg/dL (1.80-2.40); PHOSPHORUS 2.9 mg/dL (2.5-4.9); POTASSIUM 3.3 mmol/L (3.5-5.1)
[2020-12-13] MEDS: METOPROLOL TARTRATE 50 MG TAB PO SCH ×3 (05:46→21:29)
[2020-12-13] MEDS: AMIODARONE 200 MG TABLET PO SCH (05:46)
[2020-12-13] MEDS: KCL 20 MEQ ERTAB PO PRN (05:46)
[2020-12-13] MEDS: MAGNESIUM 2GM PREMIX 50ML 50 ML IV PRN (06:52)
[2020-12-13 07:00] VITALS: BP 125/79
[2020-12-13] MEDS ORDERED: KCL 20 MEQ ERTAB PO ONE (09:45)
[2020-12-13] MEDS: IRON SUCROSE COMPLEX IV SCH (09:53)
[2020-12-13] MEDS: [UNRECOGNIZED DRUG - OTHER] IV SCH (09:53)
[2020-12-13] MEDS: FLUOXETINE HCL 10 MG CAPSULE PO SCH (09:54)
[2020-12-13] MEDS: ALPRAZOLAM 0.25 MG TABLET PO SCH ×2 (09:54→21:29)
[2020-12-13] MEDS: APIXABAN 2.5 MG TABLET PO SCH ×2 (09:54→21:29)
[2020-12-13] MEDS: PANTOPRAZOLE 40 MG TAB DR PO SCH (09:56)
[2020-12-13] MEDS ORDERED: FUROSEMIDE 40 MG TABLET PO ONE (10:00)
[2020-12-13 11:00] VITALS: BP 120/78
[2020-12-13] MEDS: 0.9%NACL 50ML 50 ML IV SCH ×2 (13:30→21:30)
[2020-12-13 16:00] VITALS: BP 137/87
[2020-12-13 20:00] VITALS: BP 140/89
[2020-12-13] MEDS: SIMVASTATIN 20 MG TABLET PO SCH (21:29)
[2020-12-14] VITALS: BP 119/78
[2020-12-14 04:00] VITALS: BP 132/84
[2020-12-14] MEDS: ZOSYN 3.375GM +NS 50ML IV SCH ×3 (05:18→21:47)
[2020-12-14] MEDS: 0.9%NACL 50ML 50 ML IV SCH ×3 (05:18→21:47)
[2020-12-14] MEDS: LINEZOLID 600 MG/ISO-OSM 300 ML IV SCH ×2 (05:18→19:12)
[2020-12-14 08:00] VITALS: BP 134/91
[2020-12-14 10:46] LABS: HEMATOCRIT 31.4 % (36-48); MEAN CORPUSCULAR HEMOGLOBIN 26.9 pg (27.0-33.0); MEAN CORPUSCULAR HGB CONC 31.8 g/dL (32.0-36.0); MEAN CORPUSCULAR VOLUME 84.4 fL (79-99); RED BLOOD CELL COUNT(AUTO) 3.72 MIL/uL (4.00-5.50); RED CELL DISTRIBUTION WIDTH 14.8 % (11.0-15.5); WHITE BLOOD COUNT (AUTO) 14.9 K/uL (4.8-10.8)
[2020-12-14] MEDS: AMIODARONE 200 MG TABLET PO SCH (10:55)
[2020-12-14] MEDS: METOPROLOL TARTRATE 50 MG TAB PO SCH ×2 (10:55→21:47)
[2020-12-14] MEDS: APIXABAN 2.5 MG TABLET PO SCH ×2 (10:55→21:47)
[2020-12-14] MEDS: ALPRAZOLAM 0.25 MG TABLET PO SCH ×2 (10:55→21:47)
[2020-12-14] MEDS: FLUOXETINE HCL 10 MG CAPSULE PO SCH (10:55)
[2020-12-14] MEDS: PANTOPRAZOLE 40 MG TAB DR PO SCH (10:56)
[2020-12-14] MEDS: [UNRECOGNIZED DRUG - OTHER] IV SCH (10:57)
[2020-12-14] MEDS: IRON SUCROSE COMPLEX IV SCH (10:57)
[2020-12-14 11:33] LABS: POTASSIUM 3.1 mmol/L (3.5-5.1)
[2020-12-14 11:46] LABS: MAGNESIUM 2.1 mg/dL (1.80-2.40); PHOSPHORUS 3.2 mg/dL (2.5-4.9); THYROID STIMULATING HORMONE 1.25 uIU/mL (0.36-3.74)
[2020-12-14 12:00] VITALS: BP 121/80
[2020-12-14] MEDS: KCL 20 MEQ ERTAB PO PRN ×3 (13:20→19:12)
[2020-12-14 16:00] VITALS: BP 111/70
[2020-12-14] MEDS ORDERED: ACETAMINOPHEN 325 MG TAB PO PRN (18:30)
[2020-12-14 20:00] VITALS: BP 124/76
[2020-12-14] MEDS: SIMVASTATIN 20 MG TABLET PO SCH (21:47)
[2020-12-14] MEDS: VERAPAMIL HCL 80 MG TABLET PO SCH (21:47)
[2020-12-15] VITALS: BP 141/81
[2020-12-15 04:00] VITALS: BP 133/77
[2020-12-15] MEDS: ZOSYN 3.375GM +NS 50ML IV SCH ×3 (05:23→21:22)
[2020-12-15] MEDS: LINEZOLID 600 MG/ISO-OSM 300 ML IV SCH (05:23)
[2020-12-15] MEDS: 0.9%NACL 50ML 50 ML IV SCH ×3 (05:23→21:22)
[2020-12-15] MEDS: VERAPAMIL HCL 80 MG TABLET PO SCH ×3 (05:24→21:21)
[2020-12-15 08:04] LABS: BASOPHILS % (AUTO) 0.5 % (0.0-5.0); EOSINOPHILS % (AUTO) 2.9 % (0.0-8.0); HEMATOCRIT 30.5 % (36-48); LYMPHOCYTES % (AUTO) 13.4 % (21.0-51.0); MEAN CORPUSCULAR HEMOGLOBIN 27.2 pg (27.0-33.0); MEAN CORPUSCULAR HGB CONC 31.8 g/dL (32.0-36.0); MEAN CORPUSCULAR VOLUME 85.7 fL (79-99); MONOCYTES % (AUTO) 7.1 % (3.0-13.0); NEUTROPHILS % (AUTO) 73.9 % (40.0-77.0); NUCLEATED RED BLOOD CELLS 0.2 % (0.0-0.19); PLATELET COUNT (AUTO) 296 K/uL (130-400); RED BLOOD CELL COUNT(AUTO) 3.56 MIL/uL (4.00-5.50); RED CELL DISTRIBUTION WIDTH 15.1 % (11.0-15.5); WHITE BLOOD COUNT (AUTO) 12.5 K/uL (4.8-10.8)
[2020-12-15 08:15] LABS: CREATININE 0.8 mg/dL (0.5-1.5); POTASSIUM 4.1 mmol/L (3.5-5.1)
[2020-12-15 08:18] VITALS: BP 128/88
[2020-12-15] MEDS: ALPRAZOLAM 0.25 MG TABLET PO SCH ×2 (08:33→21:21)
[2020-12-15] MEDS: PANTOPRAZOLE 40 MG TAB DR PO SCH (08:33)
[2020-12-15] MEDS: METOPROLOL TARTRATE 50 MG TAB PO SCH ×2 (08:34→21:21)
[2020-12-15] MEDS: APIXABAN 2.5 MG TABLET PO SCH ×2 (08:34→21:21)
[2020-12-15] MEDS: FLUOXETINE HCL 10 MG CAPSULE PO SCH (08:34)
[2020-12-15] MEDS: AMIODARONE 200 MG TABLET PO SCH (08:34)
[2020-12-15] MEDS: [UNRECOGNIZED DRUG - OTHER] IV SCH (09:36)
[2020-12-15] MEDS: IRON SUCROSE COMPLEX IV SCH (09:36)
[2020-12-15 11:40] VITALS: BP 113/75
[2020-12-15 16:07] VITALS: BP 124/73
[2020-12-15 20:00] VITALS: BP 127/71
[2020-12-15] MEDS: SIMVASTATIN 20 MG TABLET PO SCH (21:21)
[2020-12-15] MEDS: ONDANSETRON 4MG INJ IV PRN (21:22)
[2020-12-16] VITALS: BP 115/72
[2020-12-16] MEDS: ZOSYN 3.375GM +NS 50ML IV SCH ×2 (05:25→16:45)
[2020-12-16] MEDS: 0.9%NACL 50ML 50 ML IV SCH ×2 (05:25→16:45)
[2020-12-16 05:29] VITALS: BP 145/88
[2020-12-16] MEDS: PANTOPRAZOLE 40 MG TAB DR PO SCH (06:40)
[2020-12-16] MEDS: VERAPAMIL HCL 80 MG TABLET PO SCH ×2 (06:40→16:45)
[2020-12-16 08:01] VITALS: BP 102/60
[2020-12-16] MEDS: FLUOXETINE HCL 10 MG CAPSULE PO SCH (09:07)
[2020-12-16] MEDS: AMIODARONE 200 MG TABLET PO SCH (09:07)
[2020-12-16] MEDS: METOPROLOL TARTRATE 50 MG TAB PO SCH (09:07)
[2020-12-16] MEDS: APIXABAN 2.5 MG TABLET PO SCH (09:08)
[2020-12-16] MEDS: ALPRAZOLAM 0.25 MG TABLET PO SCH (09:08)
[2020-12-16] MEDS ORDERED: FLUCONAZOLE 200 MG/NS 100 ML 100 ML IV SCH (11:00)
[2020-12-16] MEDS ORDERED: Zosyn 3.375GM+Ns 50ML IV (11:27)
[2020-12-16] MEDS ORDERED: ATOR20TA65 PO (11:27)
[2020-12-16] MEDS ORDERED: AMIO200T44 PO (11:27)
[2020-12-16] MEDS ORDERED: ISOS30TA92 PO (11:27)
[2020-12-16] MEDS ORDERED: VERA180T61 PO (11:27)
[2020-12-16 11:50] VITALS: BP 119/51
[2020-12-16 12:04] LABS: BASOPHILS % (AUTO) 0.6 % (0.0-5.0); EOSINOPHILS % (AUTO) 1.9 % (0.0-8.0); HEMATOCRIT 31.7 % (36-48); LYMPHOCYTES % (AUTO) 8.9 % (21.0-51.0); MEAN CORPUSCULAR HEMOGLOBIN 26.9 pg (27.0-33.0); MEAN CORPUSCULAR HGB CONC 30.6 g/dL (32.0-36.0); MEAN CORPUSCULAR VOLUME 87.8 fL (79-99); MONOCYTES % (AUTO) 5.7 % (3.0-13.0); NEUTROPHILS % (AUTO) 80.9 % (40.0-77.0); NUCLEATED RED BLOOD CELLS 0.2 % (0.0-0.19); PLATELET COUNT (AUTO) 289 K/uL (130-400); RED BLOOD CELL COUNT(AUTO) 3.61 MIL/uL (4.00-5.50); RED CELL DISTRIBUTION WIDTH 15.3 % (11.0-15.5); WHITE BLOOD COUNT (AUTO) 9.1 K/uL (4.8-10.8)
[2020-12-16 12:11] LABS: CREATININE 0.8 mg/dL (0.5-1.5); POTASSIUM 4.1 mmol/L (3.5-5.1)
[2020-12-16 12:34] LABS: B-TYPE NATRIURETIC PEPTIDE 354 pg/mL (0-100)
[2020-12-16 16:18] VITALS: BP 132/79
== END 2020-12-16 18:06 | DRG 177 ==
LOC: EDH 18:01 → EDHIP 23:27 → 3BH 12-09 02:58 → 4DH 12-09 23:27
PROVIDERS: ADMIT Internal Medicine; ATTEND Internal Medicine
PROC: 5A2204Z Restoration of Cardiac Rhythm, Single (ICD-10-PCS; principal; 2020-12-12)
DX: J15.6 Pneumonia due to other Gram-negative bacteria (principal); E43 Unspecified severe protein-calorie malnutrition; I50.43 Acute on chronic combined systolic (congestive) and diastolic (congestive) heart failure; I48.19 Other persistent atrial fibrillation; D68.59 Other primary thrombophilia; E87.1 Hypo-osmolality and hyponatremia; J44.0 Chronic obstructive pulmonary disease with (acute) lower respiratory infection; J98.11 Atelectasis; I48.4 Atypical atrial flutter; N39.0 Urinary tract infection, site not specified; J69.0 Pneumonitis due to inhalation of food and vomit; E87.6 Hypokalemia; E11.9 Type 2 diabetes mellitus without complications; I25.10 Atherosclerotic heart disease of native coronary artery without angina pectoris; D50.9 Iron deficiency anemia, unspecified; E78.5 Hyperlipidemia, unspecified; E83.42 Hypomagnesemia; F32.A Depression, unspecified; I11.0 Hypertensive heart disease with heart failure; Z20.822 Contact with and (suspected) exposure to COVID-19; F41.9 Anxiety disorder, unspecified; G20 Parkinson's disease; G25.0 Essential tremor; K21.9 Gastro-esophageal reflux disease without esophagitis; K22.89 Other specified disease of esophagus; K44.9 Diaphragmatic hernia without obstruction or gangrene; M40.204 Unspecified kyphosis, thoracic region; R09.02 Hypoxemia; R54 Age-related physical debility; E87.8 Other disorders of electrolyte and fluid balance, not elsewhere classified; R13.12 Dysphagia, oropharyngeal phase; Z68.27 Body mass index [BMI] 27.0-27.9, adult; Z88.5 Allergy status to narcotic agent; Z79.01 Long term (current) use of anticoagulants; Z79.899 Other long term (current) drug therapy; Z87.891 Personal history of nicotine dependence; Z95.5 Presence of coronary angioplasty implant and graft; Z90.49 Acquired absence of other specified parts of digestive tract; Z90.710 Acquired absence of both cervix and uterus; Z83.3 Family history of diabetes mellitus; Z82.5 Family history of asthma and other chronic lower respiratory diseases; Z82.49 Family history of ischemic heart disease and other diseases of the circulatory system; Z82.3 Family history of stroke; Z82.0 Family history of epilepsy and other diseases of the nervous system; Z80.0 Family history of malignant neoplasm of digestive organs
CPT/HCPCS: 36415; 36600; 70450; 71045; 71250; 73521; 74230; 80048; 80053; 81001; 82550; 82728; 82803; 82948; 83540; 83550; 83605; 83735; 83880; 84100; 84132; 84134; 84145; 84443; 84484; 85025; 85027; 85610; 85730; 86738; 87040; 87071; 87088; 87205; 87635; 92611; 93005; 93306; 94640; 97039; C9803; G0378; J0282; J0696; J1450; J1756; J1940; J2020; J2250; J2405; J2543; J3010; J3475; J3490; J7050; J7060